=== PATIENT | female | born 1985 | race Caucasian/White ===

== ENCOUNTER → 2023-07-18 07:04 | Outpatient (REF) | payer BC, SELFPAY | LOC: RAD 07:04 | PROVIDERS: ATTENDING PHYSICIAN Otolaryngology; FAMILY PHYSICIAN Nurse Practitioner Family | DX: J34.2 Deviated nasal septum (principal); J31.0 Chronic rhinitis; J32.0 Chronic maxillary sinusitis | CPT/HCPCS: 70486 ==

== ENCOUNTER 2023-09-11 06:25 | Day surgery (SDC) | payer BC, SELFPAY ==
[2023-09-11] VITALS (8 sets, daily range): BP systolic 114–132; BP diastolic 68–79; BMI 19.3
[2023-09-11] MEDS: NORMOSOL-R 1000 IV (12:35)
== END 2023-09-11 16:04 | disposition home or self-care (01) ==
LOC: SDS 06:25
PROVIDERS: ATTENDING PHYSICIAN Otolaryngology
DX: J34.2 Deviated nasal septum (principal); J34.3 Hypertrophy of nasal turbinates; R09.81 Nasal congestion
CPT/HCPCS: 30520; 30140; 88300

== ENCOUNTER → 2024-01-14 18:09 | Outpatient (REF) | payer BC, SELFPAY | LOC: WDC 18:09 | PROVIDERS: ATTENDING PHYSICIAN Nurse Practitioner Family | DX: Z12.31 Encounter for screening mammogram for malignant neoplasm of breast (principal) | CPT/HCPCS: 77063; 77067 ==

== ENCOUNTER → 2024-01-29 09:52 | Outpatient (REF) | payer BC, SELFPAY | LOC: WDC 09:52 | PROVIDERS: ATTENDING PHYSICIAN Nurse Practitioner Family | DX: R92.8 Other abnormal and inconclusive findings on diagnostic imaging of breast (principal) | CPT/HCPCS: 76642 ==

== ENCOUNTER → 2024-07-23 15:18 | Outpatient (REF) | payer BC, SELFPAY | LOC: WDC 15:18 | PROVIDERS: ATTENDING PHYSICIAN Nurse Practitioner Family | DX: R92.8 Other abnormal and inconclusive findings on diagnostic imaging of breast (principal) | CPT/HCPCS: 77061; 77065 ==

== ENCOUNTER → 2025-01-14 12:14 | Outpatient (REF) | payer BC, SELFPAY | LOC: WDC 12:14 | PROVIDERS: ATTENDING PHYSICIAN Nurse Practitioner Family | DX: Z12.31 Encounter for screening mammogram for malignant neoplasm of breast (principal) | CPT/HCPCS: 77063; 77067 ==